=== PATIENT | male | born 1940 | race Caucasian/White ===

== ENCOUNTER 2017-09-20 10:51 | Inpatient (IN) | payer OTHER ==
[~2017-09-20] VITALS: Ht 175.2 cm; Wt 78.5 kg
[2017-09-20] VITALS (14 sets, daily range): BP systolic 103–167; BP diastolic 53–90
--- NOTE | ~2017-09-20 | PR ---
[place], [place] PROGRESS NOTE NAME: JACOB ROSENTHAL UNIT #: [id number] ROOM: 505 DOCTOR: YUDITH HERNÁNDEZ MD BIRTHDATE: [birth year] DOS: 09/21/2017 SUBJECTIVE: The patient was seen at his bedside today 09/21/2017 with family in attendance. The patient and his family remain concerned about the safety of doing a stress test at the [facility] and are refusing to do the stress test here. He has ruled out for an acute myocardial infarction and shows no evidence for ischemia at this time. I think that further evaluation with a stress test is important, but the patient has decided to seek that elsewhere. PHYSICAL EXAMINATION: GENERAL: Today, his pulse is 68 and regular, blood pressure is 134/72. He is afebrile. He weighs 78.5 kg and has a body mass index 25.6. NECK: He has no jugular distention. CHEST: Respirations are unlabored. EXTREMITIES: Showed no edema. IMPRESSION: 1. Episode of chest pain, which was fairly brief but concerning in this setting. The patient showed no objective findings to suggest acute coronary ischemia, however. 2. History of aortic root and aortic valve replacement approximately 9 years ago at the [facility] in [place]. It is most likely that he had a bicuspid aortic valve with an ascending thoracic aortic aneurysm, but those records are not yet available to me. 3. Status post MAZE procedure during valve replacement. 4. History of catheterization and angioplasty 1 year after the patient's bypass surgery. He was told at that time that an internal mammary artery graft to the LAD that was placed at the time of his aortic valve surgery had failed. 5. History of IVP dye allergy. I have no further plans for the patient and his family is making efforts to move him to a different hospital. We will sign off, but remain available if needed. I thank the hospitalist group for asking our advice regarding his care. [place], [place] PROGRESS NOTE NAME: JACOB ROSENTHAL UNIT #: [id number] ROOM: 505 DOCTOR: YUDITH HERNÁNDEZ MD BIRTHDATE: [birth year] YUDITH HERNÁNDEZ MD CM:PNTRANS 5 3 YUDITH HERNÁNDEZ MD 09/21/17922 interface
--- NOTE | ~2017-09-20 | CON ---
[place], [place] REPORT OF CONSULTATION NAME: JACOB ROSENTHAL UNIT #: [id number] ROOM: 505 DOCTOR: YUDITH HERNÁNDEZ MD BIRTHDATE: [birth year] DOS: 09/20/2017 REASON FOR CONSULTATION: Chest pain. HISTORY OF PRESENT ILLNESS: The patient is a 76-year-old man who was previously unknown to [facility] and [facility]. He does have a history of aortic valve and aortic root disease. He states that he had an aortic valve replacement and aortic root replacement along with a maze procedure at the [facility] around 2007. Presumably, this was for a bicuspid aortic valve with ascending thoracic aortic aneurysm. He states that they did do a single vessel bypass at the time of surgery, but the bypass did not stay open and therefore he did undergo catheterization and angioplasty about a year later. He states that he has otherwise done well since then until last evening. He had an episode where he felt cold and clammy and had to change his clothes. This morning while seated at rest he had severe chest pain. His saw him at that time and stated that he was diaphoretic and "white". He took aspirin and nitroglycerin and eventually the pain resolved. The patient believes that the pains lasted several minutes before they resolved. He was then brought by EMS to the Emergency Room where he was evaluated and admitted. His electrocardiogram showed no acute changes, although he does have evidence for a previous anterior infarct and nonspecific T-wave abnormalities. Serial cardiac biomarkers have been negative x 2. PAST MEDICAL HISTORY: Includes: 1. Probable bicuspid aortic valve with aortic stenosis and ascending thoracic aortic aneurysm. 2. Status post aortic valve and aortic root replacement at the [facility] in 2007. 3. Maze procedure done at the time of heart surgery. The patient also had an internal mammary artery graft done which apparently did not stay open very long. 4. Status post catheterization with angioplasty and stent approximately one year after his aortic valve surgery. Details are not available. 5. History of essential hypertension. 6. History of hyperlipidemia. 7. History of prostate cancer. MEDICATIONS PRIOR TO ADMISSION: Aspirin 81 mg daily, lisinopril 5 mg daily, metoprolol 25 mg b.i.d., simvastatin 80 mg at bedtime and nitroglycerin sublingually p.r.n. ALLERGIES: The patient lists an allergy to IVP DYE. REVIEW OF SYSTEMS: The patient denies diplopia, loss of vision, lightheadedness, syncope or focal weakness. He denies fevers, chills or recent weight change. He states that he did have several teeth extracted about a week ago. He did state that he took antibiotics for bacterial endocarditis prophylaxis. He did have an episode of diaphoresis the night before admission as well as at the time of his chest pain. He denies nausea or vomiting. He denies hemoptysis or hematemesis. He denies any change in bowel or bladder habits. He denies blood in his stools or urine. He denies any skin rashes. He [place], [place] REPORT OF CONSULTATION NAME: JACOB ROSENTHAL UNIT #: [id number] ROOM: [facility] DOCTOR: YUDITH HERNÁNDEZ MD BIRTHDATE: [birth year] denies peripheral edema. Remainder of the review of systems is negative except as noted above. FAMILY HISTORY: Positive for coronary artery disease in many family members. His father reportedly had a heart attack during a stress test. SOCIAL HISTORY: The patient is and lives with his . He smoked briefly in his teenage years, but quit at age 27. PHYSICAL EXAMINATION: GENERAL: The patient is well-nourished white male. He is awake, alert and oriented. VITAL SIGNS: Pulse is 69 and regular, blood pressure 146/64, he is afebrile. Weight is unavailable. HEENT: Normocephalic and atraumatic. Extraocular muscles are intact. Sclerae are clear. Pupils equal, round and react to light. The oral mucosa is moist. Tongue is midline. NECK: Supple. He has no jugular distention. Carotids are full. I hear no bruits. He had no neck or supraclavicular masses, no thyromegaly. LUNGS: Respirations are unlabored. His chest is clear to auscultation and percussion. He has a few crackles at the left base, but otherwise, there are no adventitious sounds. He has no presacral edema and no chest wall tenderness. CARDIOVASCULAR: His heart has a regular rhythm. He has grade 2/6 systolic ejection murmur along the left sternal border radiating toward the base. No diastolic murmurs are present. The PMI is not displaced. He has no precordial heave, lift or thrill. ABDOMEN: Soft and normally active without masses, organomegaly or bruits. EXTREMITIES: Showed no clubbing, cyanosis or edema. Peripheral pulses are easily palpated in the feet bilaterally. LABORATORY DATA: I reviewed his electrocardiogram, it showed sinus rhythm with probable previous anterior wall myocardial infarction and nonspecific T-wave flattening. No acute ST elevations were seen. Hemoglobin is 13, hematocrit 38.3. There are 4900 white cells and 135,000 platelets present. Sodium is 137, potassium 4.1, BUN 16, creatinine 1.48. Troponin levels were normal. ProBNP was 109. IMPRESSIONS: 1. Episode of chest pain. The pain was fairly brief but certainly concerning for unstable angina. Thus far, there are no objective findings; however, to suggest coronary ischemia. 2. History of aortic root and aortic valve replacement approximately 9 years ago, probably due to bicuspid aortic valve and ascending thoracic aortic aneurysm. 3. Status post maze procedure during valve replacement. 4. History of catheterization and angioplasty 1 year after the patient's bypass surgery. 5. History of IVP DYE ALLERGY. PLAN: We would continue to monitor his symptoms, EKGs, and cardiac biomarkers. [place], [place] REPORT OF CONSULTATION NAME: JACOB ROSENTHAL UNIT #: [id number] ROOM: [facility] DOCTOR: YUDITH HERNÁNDEZ MD BIRTHDATE: [birth year] If he becomes abnormal, then catheterization would be the next step. However, if he has no elevation in troponins. Then, a stress test would be the next step, but I have informed the patient that is my recommendation. The patient's family is concerned about him having a stress test done at a hospital without catheterization facilities, but I think at this point that is the most reasonable approach to his problems. Further recommendations will be forthcoming after an echocardiogram and stress test have been reviewed. Since he did recently have dental work, I would get blood cultures as well to rule out endocarditis. [facility] and I thank the patient's hospitalist physicians for asking our advice regarding his care. YUDITH HERNÁNDEZ MD CM:CONSTR:REPORT OF CONSULTATION 12 09/20/171952 interface
[~2017-09-20 10:51] MED LIST: ASPIRIN81 M1 PO; LISINOPRIL5 MG PO; LOPRESSOR25 MG PO; SIMVASTATIN20 MG PO
[2017-09-20 11:17] LABS: BASO % 0.8 % (0.0-1.0); EOS # 0.1 10*3/uL (0.0-0.4); EOS % 2.6 % (1.0-4.0); HEMATOCRIT 38.3 % (42.0-52.0); LYMPH # 1.2 10*3/uL (1.3-4.4); LYMPH % 23.5 % (27.0-41.0); MEAN CELL VOLUME 83.4 fl (80.0-94.0); MEAN CORPUSCULAR HGB 28.3 pg (27.0-31.0); MEAN CORPUSCULAR HGB CONC 33.9 g/dl (33.0-37.0); MEAN PLATELET VOLUME 10.7 fl (9.6-12.3); MONO # 0.3 10*3/uL (0.1-1.0); MONO % 6.3 % (3.0-9.0); NEUT # 3.3 10*3/uL (2.3-7.9); NEUT % 66.4 % (47.0-73.0); PLATELET COUNT AUTOMATED 135 10*3/uL (130-400); RED BLOOD COUNT 4.59 10*6/uL (4.50-5.90); RED CELL DISTRI WIDTH 13.2 % (0-14.5); WHITE BLOOD COUNT 4.9 10*3/uL (4.8-10.8)
[2017-09-20 11:26] LABS: ACT PARTIAL THROMBO TIME 22.7 SECONDS (20.8-31.5)
[2017-09-20 11:32] LABS: ALBUMIN 3.9 gm/dl (3.1-4.5); ALKALINE PHOSPHATASE 85 U/L (45-117); BUN 16 mg/dl (7-24); CHLORIDE 102 mmol/L (98-107); CREATININE 1.48 mg/dL (0.70-1.30); LIPASE 223 U/L (73-393); POTASSIUM 4.1 mmol/L (3.5-5.1); SGOT/AST 25 IU/L (3-35); SGPT/ALT 23 U/L (12-78); SODIUM 137 mmol/L (136-145); TOTAL PROTEIN 7.4 gm/dL (6.4-8.2); TROPONIN I < 0.015 ng/ml (<0.045)
[2017-09-20] MEDS ORDERED: ZOCOR80 MG PO (16:32)
[2017-09-20] MEDS ORDERED: NITROSTAT0.4 MG SL (16:33)
[2017-09-21] VITALS: BP 103/56
[2017-09-21 07:03] LABS: BASO % 0.5 % (0.0-1.0); EOS # 0.2 10*3/uL (0.0-0.4); EOS % 3.7 % (1.0-4.0); HEMATOCRIT 41.3 % (42.0-52.0); HEMOGLOBIN 13.8 g/dl (14.0-18.0); LYMPH # 1.8 10*3/uL (1.3-4.4); LYMPH % 32.2 % (27.0-41.0); MEAN CELL VOLUME 83.9 fl (80.0-94.0); MEAN CORPUSCULAR HGB CONC 33.4 g/dl (33.0-37.0); MEAN PLATELET VOLUME 10.4 fl (9.6-12.3); MONO # 0.4 10*3/uL (0.1-1.0); MONO % 7.9 % (3.0-9.0); NEUT % 55.7 % (47.0-73.0); PLATELET COUNT AUTOMATED 140 10*3/uL (130-400); RED BLOOD COUNT 4.92 10*6/uL (4.50-5.90); WHITE BLOOD COUNT 5.5 10*3/uL (4.8-10.8)
[2017-09-21 07:21] LABS: BUN 13 mg/dl (7-24); CHLORIDE 105 mmol/L (98-107); CHOLESTEROL 141 mg/dL (<200); CREATININE 1.31 mg/dL (0.70-1.30); HDL CHOLESTEROL 36 mg/dl (40-60); LDL CHOLESTEROL 66 mg/dL (9-159); PHOSPHOROUS 3.2 mg/dL (2.5-4.9); POTASSIUM 4.3 mmol/L (3.5-5.1); SODIUM 141 mmol/L (136-145); TRIGLYCERIDES 197 mg/dl (<150); VLDL CHOLESTEROL 39 mg/dL (6-40)
[2017-09-21 08:00] VITALS: BP 134/72
[2017-09-21 08:27] LABS: VITAMIN D, 25-HYDROXY 25.3 ng/mL (30-100)
[2017-09-21] MEDS ORDERED: NITROSTAT0.3 M1 SL ×2 (10:19→10:25)
== END 2017-09-21 10:49 | disposition home or self-care (01) | DRG 313 ==
LOC: ED 10:51 → EDHOLD 14:27 → 5E 14:27
PROVIDERS: Emergency Medicine; Family Medicine
DX: R07.9 Chest pain, unspecified (principal); I25.10 Atherosclerotic heart disease of native coronary artery without angina pectoris; N17.0 Acute kidney failure with tubular necrosis; D64.9 Anemia, unspecified; I10 Essential (primary) hypertension; E78.5 Hyperlipidemia, unspecified; Z53.29 Procedure and treatment not carried out because of patient's decision for other reasons; Z78.9 Other specified health status; E78.00 Pure hypercholesterolemia, unspecified; R73.9 Hyperglycemia, unspecified; Z71.6 Tobacco abuse counseling; Z95.2 Presence of prosthetic heart valve; Z95.5 Presence of coronary angioplasty implant and graft; Z91.041 Radiographic dye allergy status; Z79.899 Other long term (current) drug therapy; Z79.82 Long term (current) use of aspirin; Z98.42 Cataract extraction status, left eye; Z98.41 Cataract extraction status, right eye; Z90.49 Acquired absence of other specified parts of digestive tract; Z95.1 Presence of aortocoronary bypass graft; Z87.891 Personal history of nicotine dependence; Z85.46 Personal history of malignant neoplasm of prostate; Z82.49 Family history of ischemic heart disease and other diseases of the circulatory system

== ENCOUNTER → 2017-10-04 | Outpatient (CLI) | payer OTHER ==
[~2017-10-04] MED LIST changes: +NITROSTAT0.3 M1 SL; +NITROSTAT0.4 MG SL; +ZOCOR80 MG PO
--- NOTE | ~2017-10-04 | ST ---
[place], [place] EXERCISE STRESS TEST REPORT NAME: JACOB ROSENTHAL [facility] #: [id number] UNIT #: [id number] ROOM: DOCTOR: HU ANDERSON MD BIRTHDATE: [birth year] DOS: 10/04/2017 PHARMACOLOGICAL NUCLEAR STRESS TEST AGE: He is 76-year-old. HEIGHT: 67 inches. WEIGHT: 174. REASON FOR STUDY: Chest pain and baseline EKG. Heart rate of 66, blood pressure of 120/72. Baseline oxygen saturation of 97% at room air. 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 No arrhythmias noted. Lexiscan was infused over 10 seconds and nuclear injection was made at 40 seconds and the patient was observed for 3 minutes in recovery phase. The patient experienced shortness of breath and some chest and epigastric discomfort, which lasted for a few minutes. From EKG point of view, no abnormal or acute ST-T wave changes noted compared to baseline. Heart rate and blood pressure response was physiological. FINAL IMPRESSION: Pending nuclear images. HU ANDERSON MD CM:STRESS:EXERCISE STRESS TEST REPORT [id number] HU ANDERSON MD
--- NOTE | ~2017-10-04 | ST ---
[place], [place] EXERCISE STRESS TEST REPORT NAME: JACOB ROSENTHAL Orin [facility] #: [id number] UNIT #: [id number] ROOM: DOCTOR: HU ANDERSON MD BIRTHDATE: [birth year] CM:STRESS:EXERCISE STRESS TEST REPORT [id number] HU ANDERSON MD
== END | disposition home or self-care (01) ==
LOC: CARD 01:21
DX: R07.9 Chest pain, unspecified (principal); R53.81 Other malaise

== ENCOUNTER 2019-07-05 23:22 | Inpatient (IN) | payer OTHER ==
[~2019-07-05] VITALS: Ht 175.3 cm; Wt 79.6 kg
[~2019-07-05 23:22] MED LIST changes: +ZOCOR20 MG PO; -ZOCOR80 MG PO
--- NOTE | 2019-07-05 23:25 | NUR ---
PT TO TREATMENT ROOM, PLACED IN GOWN, ASSESSMENT COMPLETE, PLACED ON ANGLE ROLL OPERATOR, NIBP AND CONTINUOUS PULSE OX, EKG COMPLETE AND GIVEN TO MD, PT WAITING TO BE SEEN BY MD, CALL MANLEY IN REACH, PT IN NO ACUTE DISTRESS
[2019-07-05 23:29] VITALS: BP 127/60
--- NOTE | 2019-07-05 23:45 | NUR ---
DR. FLORIAN AT BEDSIDE
[2019-07-05 23:46] LABS: BASO # 0.1 10*3/uL (0.0-0.1); EOS # 0.2 10*3/uL (0.0-0.4); EOS % 2.2 % (1.0-4.0); HEMATOCRIT 39.9 % (42.0-52.0); HEMOGLOBIN 12.9 g/dl (14.0-18.0); LYMPH % 27.7 % (27.0-41.0); MEAN CELL VOLUME 85.6 fl (80.0-94.0); MEAN CORPUSCULAR HGB 27.7 pg (27.0-31.0); MEAN CORPUSCULAR HGB CONC 32.3 g/dl (33.0-37.0); MEAN PLATELET VOLUME 10.1 fl (9.6-12.3); MONO # 0.6 10*3/uL (0.1-1.0); NEUT # 4.5 10*3/uL (2.3-7.9); NEUT % 60.7 % (47.0-73.0); PLATELET COUNT AUTOMATED 179 10*3/uL (130-400); RED BLOOD COUNT 4.66 10*6/uL (4.50-5.90); RED CELL DISTRI WIDTH 12.5 % (0-14.5); WHITE BLOOD COUNT 7.3 10*3/uL (4.8-10.8)
--- NOTE | 2019-07-05 23:50 | NUR ---
PORTABLE CXR COMPLETE ORDERED
[2019-07-05 23:52] LABS: INTERNATIONAL NORM RATIO 0.9 (2.0-3.5)
[2019-07-05 23:55] LABS: ALBUMIN 3.9 gm/dl (3.1-4.5); ALKALINE PHOSPHATASE 85 U/L (45-117); BUN 25 mg/dl (7-24); CHLORIDE 109 mmol/L (98-107); POTASSIUM 4.1 mmol/L (3.5-5.1); SGOT/AST 20 IU/L (3-35); SGPT/ALT 22 U/L (12-78); SODIUM 141 mmol/L (136-145); TOTAL PROTEIN 7.4 gm/dL (6.4-8.2)
[2019-07-05 23:59] LABS: TROPONIN I < 0.015 ng/ml (<0.045)
[2019-07-06] VITALS (10 sets, daily range): BP systolic 113–162; BP diastolic 58–75
--- NOTE | 2019-07-06 00:22 | NUR ---
WILL CONTINUE TO TITRATE NTG GTT ORDERED, SEE EMAR, INFUSING VIA IV PUMP WITH NO REDNESS OR SWELLING
--- NOTE | 2019-07-06 00:22 | NUR ---
RT SIDE EKG COMPLETE ORDERED BY RESP THERAPIST
--- NOTE | 2019-07-06 00:41 | NUR ---
DR FLORIAN AT BEDSIDE TO RE-EVALUATE PT, PT MEDICATED FOR ABD PAIN ORDERED SEE EMAR, PAIN RATED 7/10, WILL CNTINUE TO MONITOR PT, CALL MANLEY IN REACH
[2019-07-06] MEDS ORDERED: CLARITIN10 MG PO (00:59)
[2019-07-06] MEDS ORDERED: CO Q-1010 M2 PO (00:59)
[2019-07-06] MEDS ORDERED: MAALOX ADVANCE355 M1 PO (01:00)
[2019-07-06] MEDS ORDERED: B121000 MCG/1 IM (01:01)
--- NOTE | 2019-07-06 01:38 | NUR ---
PT RESTING QUIETLY, PAIN FREE, SR ON MONITOR, AWAITING ROOM ASSIGNMENT FOR ADMIT
--- NOTE | 2019-07-06 02:03 | NUR ---
CT COMPLETE ORDERED BY
--- NOTE | 2019-07-06 02:06 | NUR ---
NTG GTT TITRATED DOWN AND D/C ORDERED BY , PT TOLERATED WELL
--- NOTE | 2019-07-06 02:34 | NUR ---
Time: A 78 year old MALE admitted to 5E under services of JESSICA YOU DO. Pt. arrived via stretcher from ER. Chief complaint: CHEST PAIN. RECEIVED REPORT FROM JANAY MILLAN. PT ORIENTED TO FLOOR. NSR ON MONITOR. BELONGINGS WITH PATIENT. CARO CHRISTIANSON
--- NOTE | 2019-07-06 02:34 | NUR ---
PT ADMITTED TO 5TH FLOOR WITH RN IN NO ACUTE DISTRESS, RESP EASY ON 2 L/NC, NSR ON MONITOR, SALINE LOCKS PATENT WITH NO REDNESS OR SWELLING, BELONGINGS WITH PT
--- NOTE | 2019-07-06 03:07 | NUR ---
MED REC REVIEWED WITH IN ER.
--- NOTE | 2019-07-06 03:48 | NUR ---
PT CO EPIGASTRIC PAIN RATED 8/10. MEDICATED WITH PRN MORPHINE. WILL CHECK EFFECTIVENESS. CALL LIGHT WITHIN REACH.
--- NOTE | 2019-07-06 04:00 | NUR ---
PT SLEEPING. REPSIRATIONS EASY, NONLABORED. PAIN MED SEEMS TO BE EFFECTIVE. CALL LIGHT WITHIN REACH.
[2019-07-06 05:52] LABS: ALBUMIN 4.1 gm/dl (3.1-4.5); CREATININE 1.83 mg/dL (0.70-1.30); PHOSPHOROUS 2.7 mg/dL (2.5-4.9); POTASSIUM 4.9 mmol/L (3.5-5.1); TOTAL PROTEIN 7.7 gm/dL (6.4-8.2)
--- NOTE | 2019-07-06 06:36 | NUR ---
ANSWERING SERVICE NOTIFIED OF NEW CONSULT.
[2019-07-06 06:38] LABS: BASO % 0.3 % (0.0-1.0); EOS % 0.1 % (1.0-4.0); HEMOGLOBIN 12.9 g/dl (14.0-18.0); LYMPH # 0.5 10*3/uL (1.3-4.4); LYMPH % 4.9 % (27.0-41.0); MEAN CELL VOLUME 86.6 fl (80.0-94.0); MEAN CORPUSCULAR HGB 27.9 pg (27.0-31.0); MEAN CORPUSCULAR HGB CONC 32.3 g/dl (33.0-37.0); MEAN PLATELET VOLUME 10.4 fl (9.6-12.3); MONO # 0.8 10*3/uL (0.1-1.0); MONO % 6.9 % (3.0-9.0); NEUT # 9.5 10*3/uL (2.3-7.9); NEUT % 87.4 % (47.0-73.0); PLATELET COUNT AUTOMATED 168 10*3/uL (130-400); RED BLOOD COUNT 4.62 10*6/uL (4.50-5.90); RED CELL DISTRI WIDTH 12.6 % (0-14.5); WHITE BLOOD COUNT 10.9 10*3/uL (4.8-10.8)
--- NOTE | 2019-07-06 09:07 | NUR ---
PT WILL NOT HAVE ABD ULTRASOUND TODAY. I SPOKE TO DR EMERSON AND RECIVED ORDER FOR CARDIAC DIET. I ALSO INFORMED HER THAT PT HAS TEMP ON 100.2 ORAL. WILL ADMINISTER PO TYLENOL AND MONITOR
--- NOTE | 2019-07-06 09:12 | NUR ---
SPOKE TO DR KELLER REGARDING ATTEMPT TO CHECK PT RECTALLY FOR HARD STOOL. ORDERS RECEIVED.
--- NOTE | 2019-07-06 09:35 | NUR ---
ADMINISTERED PO NORCO FOR PAIN IN RIGHT SIDE RATED 8/10. WILL MONITOR FOR EFFECTIVENESS
--- NOTE | 2019-07-06 10:30 | NUR ---
Patient resting quietly with no c/o discomfort. Respirations easy and regular. Vital signs stable. No overt distress. ERIBERTO ALANIZ
--- NOTE | 2019-07-06 14:37 | NUR ---
SPOKE TO DR HOWELL REGARDING ORDER FOR ASPIRIN SUPPOSITORY. HE STATED ORDER SHOULD BE PO ASPIRIN DAILY
--- NOTE | 2019-07-06 22:10 | NUR ---
PT CO RIGHT SIDE PAIN RATED 8/10. MEDICATED WITH PRN NORCO ORDERED. WILL CHECK EFFECTIVENESS. CALL LIGHT WITHIN REACH.
--- NOTE | 2019-07-06 23:25 | NUR ---
PT RESTING IN BED WITH NO C/O DISCOMFORT AT THIS TIME. PATIENT STATES PAIN MED WAS EFFECTIVE. WILL CONTINUE TO MONITOR. CALL LIGHT WITHIN REACH.
[2019-07-07] VITALS: BP 108/53
--- NOTE | 2019-07-07 00:08 | NUR ---
24 HR chart check completed.
--- NOTE | 2019-07-07 05:00 | NUR ---
CRIMINAL JUSTICE PROGRAM DIRECTOR CALLED AND INFORMED ME OF ST ELEVATION. WENT INTO PTS ROOM AND PT SEEMED VERY RESTLESS. PT HAD HIS OXYGEN OFF BECAUSE HE FELT HE DIDN'T NEED IT. PUT OXYGEN BACK ON PULSE OX UP TO 95. INFORMED . SEE NEW ORDERS.
[2019-07-07 05:58] LABS: CREATININE 1.96 mg/dL (0.70-1.30); POTASSIUM 4.3 mmol/L (3.5-5.1)
--- NOTE | 2019-07-07 06:29 | NUR ---
IN TO SEE PT. PATIENT RESTING IN BED WITH OXYGEN ON PULSE OX 95. PT CO RUQ PAIN, BUT STATES HE DOES NOT WANT ANY PAIN MEDS AT THIS TIME. WILL MONITOR. CALL LIGHT WITHIN REACH.
[2019-07-07 06:34] LABS: HEMOGLOBIN 12.7 g/dl (14.0-18.0); MEAN CELL VOLUME 87.4 fl (80.0-94.0); MEAN CORPUSCULAR HGB 28.5 pg (27.0-31.0); MEAN CORPUSCULAR HGB CONC 32.6 g/dl (33.0-37.0); MEAN PLATELET VOLUME 10.3 fl (9.6-12.3); PLATELET COUNT AUTOMATED 129 10*3/uL (130-400); RED BLOOD COUNT 4.46 10*6/uL (4.50-5.90); WHITE BLOOD COUNT 12.5 10*3/uL (4.8-10.8)
[2019-07-07 07:04] LABS: BASOPHILS 1 % (0-1); OVALOCYTES FEW; TOTAL CELLS COUNTED 100 #CELLS
[2019-07-07 07:05] LABS: PLATELET SUFFICIENCY LOW (NORMAL)
--- NOTE | 2019-07-07 07:53 | NUR ---
PT C/O PAIN TO UPPER ABD ON RIGHT SIDE AND RIGHT SIDED CHEST PAIN OF 6/10 . MORPHINE IV GIVEN AT THIS TIME. WILL CONT TO MONITOR. CALL LIGHT IN REACH.
[2019-07-07 08:00] VITALS: BP 126/50
--- NOTE | 2019-07-07 08:53 | NUR ---
PT RESTING QUIETLY AT THIS TIME. WILL CONT TO MONITOR. CALL LIGHT IN REACH.
--- NOTE | 2019-07-07 11:48 | NUR ---
PT GRIMACING AND BRACING ABD. NORCO GIVEN FOR PAIN AT THIS TIME PER HIS REQUEST. WILL CONT TO MONITOR. CALL LIGHT IN REACH.
[2019-07-07 12:00] VITALS: BP 123/47
--- NOTE | 2019-07-07 12:48 | NUR ---
RESTING QUIETLY AT THIS TIME WITH EYES CLOSED. WILL CONT TO MONITOR. CALL LIGHT IN REACH.
--- NOTE | 2019-07-07 13:20 | NUR ---
DR HOWELL IN TO SEE PATIENT AND GAVE ME A NEW VERBAL ORDER FOR LASIX 40MG IV X1 NOW.
[2019-07-07 16:00] VITALS: BP 106/44
[2019-07-07 20:00] VITALS: BP 104/54
[2019-07-08] VITALS (14 sets, daily range): BP systolic 91–155; BP diastolic 52–74
--- NOTE | 2019-07-08 02:12 | NUR ---
24 HR chart check completed.
--- NOTE | 2019-07-08 03:53 | NUR ---
PT STATES THAT HE IS HAVING PAIN IN HIS CHEST AND ABDOMEN RATING IT A 6/10 AND IS REQUESTING PAIN MEDICATIONS. MORPHINE IV IS GIVEN AT THIS TIME. WILL CONTINUE TO MONITOR THE PATIENT. CALL LIGHT WITHIN REACH.
--- NOTE | 2019-07-08 04:23 | NUR ---
PT RE-EVALUATED AT THIS TIME. STATES THAT THE IV MORPHINE HAS HELPED THE PAIN A LITTLE BIT. REQUESTED THE AIR BE TURNED COOLER DUE TO BEING HOT. RESTING AT THIS TIME, AROUSES EASILY. CALL LIGHT WITHIN REACH. WILL CONTINUE TO MONITOR.
[2019-07-08 07:03] LABS: BASO % 0.2 % (0.0-1.0); EOS % 0.1 % (1.0-4.0); HEMATOCRIT 37.1 % (42.0-52.0); HEMOGLOBIN 12.1 g/dl (14.0-18.0); LYMPH # 0.9 10*3/uL (1.3-4.4); LYMPH % 7.5 % (27.0-41.0); MEAN CELL VOLUME 88.1 fl (80.0-94.0); MEAN CORPUSCULAR HGB 28.7 pg (27.0-31.0); MEAN CORPUSCULAR HGB CONC 32.6 g/dl (33.0-37.0); MEAN PLATELET VOLUME 10.9 fl (9.6-12.3); MONO # 0.6 10*3/uL (0.1-1.0); MONO % 5.2 % (3.0-9.0); NEUT # 9.6 10*3/uL (2.3-7.9); NEUT % 84.9 % (47.0-73.0); PLATELET COUNT AUTOMATED 116 10*3/uL (130-400); RED BLOOD COUNT 4.21 10*6/uL (4.50-5.90); WHITE BLOOD COUNT 11.3 10*3/uL (4.8-10.8)
[2019-07-08 07:10] LABS: CREATININE 2.37 mg/dL (0.70-1.30); POTASSIUM 3.9 mmol/L (3.5-5.1)
--- NOTE | 2019-07-08 08:29 | NUR ---
Nursing screen received and chart reviewed. Per chart review, patient is independent with ADLs and mobility. If patient has a decline in ADLs and functional mobility/transfer, please send OT orders. Thank you. Divine Ivory, OTR/L
--- NOTE | 2019-07-08 09:00 | NUR ---
Bottle Washer in to talk to patient. Patient states lives at home with . There are few steps in the home. Physician: althea [facility] Home health services: none Patient's level of ADLs: INDEPENDENT Patient has working utilities: all working DME: none Follow-up physician's appointment after d/c: will be made by hospitalist nurse director upon discharge Does patient want to access PORTAL?: no Discharge plan discussed with patient's , she states patient lives at home with her, is independent in adls and ambulation, drives, she states he will return home when medically stable and denies any home needs. HELLEN HEWITT
--- NOTE | 2019-07-08 09:06 | NUR ---
Not available for echo.
--- NOTE | 2019-07-08 11:03 | NUR ---
PHYSICIAN WAS NOTIFIED OF DR. HIRSCH CONSULT. RESPONSE OF NOTIFICATION WAS OK KEEP HIM NPO UNTIL I SEE HIM. ILENE MATHUR
--- NOTE | 2019-07-08 11:13 | NUR ---
PT COMPLAINS OF ABD PAIN 4/10 MORPHINE GIVEN
--- NOTE | 2019-07-08 11:15 | NUR ---
DR HIRSCH CALLED BACK AND GAVE NEW ORDERS FOR A LAPARSCOPIC CHOLECYSTECTOMY TODAY AT 12:30. DR DEXTER MADE AWARE AND PATIENT OK WITH.
--- NOTE | 2019-07-08 11:47 | NUR ---
SPOKE TO DR HOWELL AND HE STATED PT WAS CLEAR FOR SURGERY AND HE IS SIGNING OFF.
--- NOTE | 2019-07-08 11:51 | NUR ---
LEFT FLOOR FOR SURGERY
--- NOTE | 2019-07-08 11:57 | NUR ---
still not available for echo, went to surgery.
--- NOTE | 2019-07-08 18:00 | NUR ---
DR HUNT NOTIFIED OF PT TEMP OF 100.2
--- NOTE | 2019-07-08 18:01 | NUR ---
PT SHIVERING TEMPERATURE 100.2 TYLENOL GIVEN WILL RECHECK IN 1 HR
--- NOTE | 2019-07-08 18:21 | NUR ---
PT SHIVERING, STATES HE'S FEELING FINE, HR 120'S PER CM. DR HUNT NOTIFIED AND ASKED THAT I UPDATE DR HIRSCH.
--- NOTE | 2019-07-08 18:26 | NUR ---
DR HIRSCH UPDATED ON PT CONDITION PER DR HUNT'S REQUEST. NO NEW ORDERS RECEIVED.
--- NOTE | 2019-07-08 18:48 | NUR ---
LOPRESSOR GIVEN EARLY DUE TO ELEVATED HR AND PT DID NOT HAVE AM DOSE DUE TO SURGERY DIRECTED BY DR HIRSCH.
--- NOTE | 2019-07-08 19:03 | NUR ---
PT DENIES PAIN AT THIS TIME.
--- NOTE | 2019-07-08 20:00 | NUR ---
02 SATS 90% AT 2 LITERS; INCREASED 02 AT THIS TIME TO 3 LITERS. PT. ENCOURAGED TO TAKE DEEP BREATHS.
--- NOTE | 2019-07-08 23:18 | NUR ---
NOTIFIED OF PT'S BLOOD PRESSURE OF 68/50; NEW ORDER RECEIVED FOR 250 CC BOLUS.
[2019-07-09] VITALS (65 sets, daily range): BP systolic 70–128; BP diastolic 34–66
--- NOTE | 2019-07-09 00:24 | NUR ---
NOTIFIED DR. BOURNE OF PT'S LOW BLOOD PRESSURE; SEE VITAL SIGN FLOW CHART. ANOTHER ORDER RECEIVED FOR A 500 CC BOLUS.
--- NOTE | 2019-07-09 02:11 | NUR ---
PT'S BLOOD PRESSURE REMAINS LOW AFTER A 200 CC BOLUS & A [address] BOURNE & DR. BOURNE STATED THAT HE WOULD SEE WHAT ELSE COULD BE DONE FOR HIM.
--- NOTE | 2019-07-09 02:25 | NUR ---
DR. BURK & DR. BOURNE HERE TO SEE PT. TRANSFERRING PT. TO ICU.
--- NOTE | 2019-07-09 02:45 | NUR ---
PT. TAKEN DOWN TO ICU VIA BED ACCOMPANIED BY PA & RN. REPORT GIVEN TO RN.
--- NOTE | 2019-07-09 02:50 | NUR ---
PATIENT TRANSEFERED TO ICCU FROM 5E REPRORT RECIEVED FROM ADOLFO GUSTAFSON.
[2019-07-09 03:48] LABS: HEMATOCRIT 33.5 % (42.0-52.0); MEAN CELL VOLUME 87.2 fl (80.0-94.0); MEAN CORPUSCULAR HGB 28.6 pg (27.0-31.0); MEAN CORPUSCULAR HGB CONC 32.8 g/dl (33.0-37.0); MEAN PLATELET VOLUME 10.8 fl (9.6-12.3); PLATELET COUNT AUTOMATED 108 10*3/uL (130-400); RED BLOOD COUNT 3.84 10*6/uL (4.50-5.90); RED CELL DISTRI WIDTH 13.2 % (0-14.5); WHITE BLOOD COUNT 10.6 10*3/uL (4.8-10.8)
[2019-07-09 04:08] LABS: ALBUMIN 2.5 gm/dl (3.1-4.5); CREATININE 3.45 mg/dL (0.70-1.30); POTASSIUM 3.7 mmol/L (3.5-5.1)
[2019-07-09 04:19] LABS: PLATELET SUFFICIENCY LOW (NORMAL); TOTAL CELLS COUNTED 100 #CELLS
--- NOTE | 2019-07-09 04:28 | NUR ---
CALLED DOCTOR HIRSCH WITH UPDATE OF PATIENT BEING MOVED TO THE ICCU HE SAID OK NO NEW ORDRES AT THIS TIME.
--- NOTE | 2019-07-09 07:01 | NUR ---
PT'S , MIKE ROSENTHAL, NOTIFIED OF BEING TRANSFERRED TO ICU.
--- NOTE | 2019-07-09 07:25 | NUR ---
PATIENT STRAIGHT CATHED FOR 300CC CLEAR AMBERLY URINE PER ONE TIME ORDER.
--- NOTE | 2019-07-09 11:20 | NUR ---
PATIENT C/O ABDOMINAL PAIN AT SURGICAL SITE. MEDICATED WITH NORCO PER PRN ORDER. WILL CONTINUE TO MONITOR.
--- NOTE | 2019-07-09 12:00 | NUR ---
NOTIFIED OFFICE OF NEW CONSULT ORDER.
--- NOTE | 2019-07-09 15:00 | NUR ---
PATIENT HAS NOT VOIDED SINCE BEING STRAIGHT CATHED THIS AM. BLADDER SCAN 85CC. NOTIFIED. WANTS TO BE NOTIFIED OF THIS.
--- NOTE | 2019-07-09 15:45 | NUR ---
HERE. UPDATED ON PATIENT. INFORMED OF BLADDER SCAN RESULTS AND OF PATIENT NOT VOIDING. NEW ORDER RECEIVED TO ST.CATH FOR BLADDER SCAN >300.
[2019-07-09] MEDS ORDERED: TRIAMTERENE-HC1 EACH PO (16:38)
--- NOTE | 2019-07-09 16:42 | NUR ---
NOTIFIED THAT MEDICATION RECONNCILIATION IS UPDATED FROM PHARMACY AND SPOUSE AT THIS TIME.
[2019-07-09 17:22] LABS: BILIRUBIN 2+ (NEGATIVE); BLOOD 3+ (NEGATIVE); CLARITY CLOUDY (CLEAR); COLOR YELLOW (YELLOW); GLUCOSE NEGATIVE (NEGATIVE); KETONE NEGATIVE (NEGATIVE); LEUKO ESTERASE NEGATIVE (NEGATIVE); NITRITE NEGATIVE (NEGATIVE); PH 5.5 (5.0-9.0); SPECIFIC GRAVITY 1.015 (1.005-1.030); UROBILINOGEN 0.2 E.U./dl (0.2-1.0)
[2019-07-09 17:37] LABS: BACTERIA 4+; RBC TNTC rbc/hpf (0-2)
--- NOTE | 2019-07-09 18:00 | NUR ---
LEVOPHED GTT OFF AT THIS TIME.
--- NOTE | 2019-07-09 21:02 | NUR ---
PATIENT HAD 10 BEAT RUN VTACH DOCTOR WM MADE AWARE MAG RUN ORDERED. PATIENT IS ASYMPTOMATIC DENIES CP VITALS ARE STABLE.
[2019-07-10] VITALS (7 sets, daily range): BP systolic 92–110; BP diastolic 50–65
--- NOTE | 2019-07-10 04:10 | NUR ---
BLADDER SCANNED PATIENT AND IS ONLY SHOWING 89 ML IN THE BLADDER THAT IS THE HIGHEST AMOUNT. PATIENT DENIES THE NEED TO URINATE AT THIS TIME. PATIENT HAS BEEN SLEEPING IN THE CHAIR THE PAST FEW HOURS STATES THAT HE IS MORE COMFORTABLE IN IT.
[2019-07-10 05:31] LABS: PHOSPHOROUS 2.5 mg/dL (2.5-4.9)
--- NOTE | 2019-07-10 06:23 | NUR ---
PATIENT TAKEN DOWN FOR CHEST XRAY. PATIENT CAME BACK FROM CHEST XRAY VITALS STABLE CURRENTLY SEE VITALS FOR DETAILS CURRENTLY IV FLUIDS INFUSING.
[2019-07-10 06:41] LABS: BASO % 0.3 % (0.0-1.0); EOS % 0.5 % (1.0-4.0); HEMATOCRIT 28.3 % (42.0-52.0); LYMPH # 0.6 10*3/uL (1.3-4.4); LYMPH % 9.6 % (27.0-41.0); MEAN CELL VOLUME 88.4 fl (80.0-94.0); MEAN CORPUSCULAR HGB 28.1 pg (27.0-31.0); MEAN CORPUSCULAR HGB CONC 31.8 g/dl (33.0-37.0); MEAN PLATELET VOLUME 10.8 fl (9.6-12.3); MONO # 0.5 10*3/uL (0.1-1.0); MONO % 8.4 % (3.0-9.0); NEUT # 4.8 10*3/uL (2.3-7.9); NEUT % 80.5 % (47.0-73.0); PLATELET COUNT AUTOMATED 101 10*3/uL (130-400); RED CELL DISTRI WIDTH 13.9 % (0-14.5)
[2019-07-10 06:46] LABS: ALBUMIN 2.3 gm/dl (3.1-4.5); CREATININE 4.95 mg/dL (0.70-1.30); PHOSPHOROUS 2.3 mg/dL (2.5-4.9); POTASSIUM 3.7 mmol/L (3.5-5.1)
[2019-07-10 07:30] LABS: ALBUMIN 2.3 gm/dl (3.1-4.5); BILIRUBIN, DIRECT 2.3 mg/dL (0.0-0.2); TOTAL PROTEIN 5.8 gm/dL (6.4-8.2)
--- NOTE | 2019-07-10 07:52 | NUR ---
PHYSICAL THERAPY Screen received pt transfered from 505 to ICU pt could benefit from PT pending medical status and progress, please order PT as approp if functional status declines, thank you. Marci Heaton
--- NOTE | 2019-07-10 18:00 | NUR ---
CALLED IN AND UPDATED ON PATIENT CONDITION AND LAB WORK. PATIENT BLADDER SCANNED FOR 148CC. INFORMED OF THIS. NO NEW ORDERS RECEIVED.
--- NOTE | 2019-07-10 20:08 | NUR ---
PT. RESTING IN BED. HEP LOCK IN LA AND RIJ MLC INTACT, SITES ASYMPT. LUNGS DIMINISHED WITH AN EXP. WHEEZES BILAT, PULSE OX 96% ON 2L NC. ABDOMEN SOFT ,NONDISTENDED AND NORMO. NO PERIPHERAL EDEMA NOTED. SMALL INCISION SITES ON ABD GLUED, SLIGHTLY REDDENED WITH NO DRAINAGE NOTED. BRET MUNIZ RN
--- NOTE | 2019-07-10 21:31 | NUR ---
PT. GIVEN RESTORIL AND NORCO AT 2121 FOR COMPLAINTS OF INABILITY TO SLEEP AND POST-OP PAIN. BRET MUNIZ RN
[2019-07-10 21:33] LABS: BILIRUBIN NEGATIVE (NEGATIVE); BLOOD 1+ (NEGATIVE); CLARITY SL CLOUDY (CLEAR); COLOR YELLOW (YELLOW); GLUCOSE NEGATIVE (NEGATIVE); KETONE NEGATIVE (NEGATIVE); LEUKO ESTERASE NEGATIVE (NEGATIVE); NITRITE NEGATIVE (NEGATIVE); PH 5.5 (5.0-9.0); SPECIFIC GRAVITY 1.015 (1.005-1.030); UROBILINOGEN 0.2 E.U./dl (0.2-1.0)
[2019-07-10 22:02] LABS: BACTERIA 1+
--- NOTE | 2019-07-10 22:11 | NUR ---
PT. SLEEPING, NORCO AND RESTORIL EFFECTIVE.
[2019-07-11] VITALS: BP 109/53
[2019-07-11 04:00] VITALS: BP 104/56
[2019-07-11 05:34] LABS: BASO % 0.4 % (0.0-1.0); EOS # 0.1 10*3/uL (0.0-0.4); EOS % 1.4 % (1.0-4.0); HEMATOCRIT 29.4 % (42.0-52.0); HEMOGLOBIN 9.2 g/dl (14.0-18.0); LYMPH # 0.6 10*3/uL (1.3-4.4); LYMPH % 10.8 % (27.0-41.0); MEAN CELL VOLUME 89.4 fl (80.0-94.0); MEAN CORPUSCULAR HGB CONC 31.3 g/dl (33.0-37.0); MEAN PLATELET VOLUME 10.7 fl (9.6-12.3); MONO # 0.5 10*3/uL (0.1-1.0); MONO % 8.6 % (3.0-9.0); NEUT # 4.3 10*3/uL (2.3-7.9); PLATELET COUNT AUTOMATED 110 10*3/uL (130-400); RED BLOOD COUNT 3.29 10*6/uL (4.50-5.90); RED CELL DISTRI WIDTH 14.5 % (0-14.5); WHITE BLOOD COUNT 5.6 10*3/uL (4.8-10.8)
[2019-07-11 05:52] LABS: ALBUMIN 2.1 gm/dl (3.1-4.5); CREATININE 5.87 mg/dL (0.70-1.30); PHOSPHOROUS 3.1 mg/dL (2.5-4.9); POTASSIUM 4.2 mmol/L (3.5-5.1); TOTAL PROTEIN 5.7 gm/dL (6.4-8.2)
[2019-07-11 08:00] VITALS: BP 112/60; BP 137/90
--- NOTE | 2019-07-11 08:36 | NUR ---
I SPOKE WITH DR DRUMMOND AND UPDATED HIM ON PT'S LAB WORK AND URINE OUTPT. NEW ORDER TO DECREASE IVF'S TO 50CC/HR.
--- NOTE | 2019-07-11 08:51 | NUR ---
DULCOLAX TAB GIVEN FOR CONSTIPATION.
--- NOTE | 2019-07-11 08:51 | NUR ---
DR HIRSCH IN TO SEE PT.
[2019-07-11 12:00] VITALS: BP 111/59
--- NOTE | 2019-07-11 12:22 | NUR ---
PATIENT TRANSFEED FROM ICU TO TELELMETRY UNIT, HE DENIES ANY COMPLANTS OR CONCERNS AT THIS TIME. MULTIPLE FAMILY MEMBERS AT BEDSIDE, JOSE BERNSTEIN UPDATED. REPORT RECEIVED FROM ICU NURSE.
--- NOTE | 2019-07-11 12:22 | NUR ---
Pt transfered to [facility] at this time. Pt was able to ambulate with minimal assist needed to his new room.
[2019-07-11 16:00] VITALS: BP 120/59
--- NOTE | 2019-07-11 16:57 | NUR ---
PATIENTS LAST BM 6 DAYS AGO CALL PLACED TO DR. TONY, TO RECEIEVED FOR A DOUBLE DOSE OF MIRALAX.
--- NOTE | 2019-07-11 19:20 | NUR ---
Patient resting quietly with no c/o discomfort. Respirations easy and regular. Vital signs stable. No overt distress. CALL LIGHT WITHIN REACH LAYNE JAMES
[2019-07-11 20:00] VITALS: BP 136/69
--- NOTE | 2019-07-11 20:53 | NUR ---
PATIENT HAD MEDIUM SIZED SEMI-SOFT BOWEL MOVEMENT.
--- NOTE | 2019-07-11 22:00 | NUR ---
PATIENT BLADDER SCANNED AT THIS TIME. AMOUNT 201 CC URINE SHOW, NOT CATH'D PER ORDERS. WILL CONTINUE TO MONITOR
[2019-07-12] VITALS: BP 119/87
[2019-07-12 07:00] LABS: BASO % 0.5 % (0.0-1.0); EOS # 0.1 10*3/uL (0.0-0.4); EOS % 1.6 % (1.0-4.0); HEMATOCRIT 29.1 % (42.0-52.0); HEMOGLOBIN 9.4 g/dl (14.0-18.0); LYMPH # 0.7 10*3/uL (1.3-4.4); LYMPH % 10.4 % (27.0-41.0); MEAN CELL VOLUME 86.4 fl (80.0-94.0); MEAN CORPUSCULAR HGB 27.9 pg (27.0-31.0); MEAN CORPUSCULAR HGB CONC 32.3 g/dl (33.0-37.0); MEAN PLATELET VOLUME 10.6 fl (9.6-12.3); MONO # 0.6 10*3/uL (0.1-1.0); MONO % 9.7 % (3.0-9.0); NEUT # 4.8 10*3/uL (2.3-7.9); NEUT % 77.3 % (47.0-73.0); PLATELET COUNT AUTOMATED 140 10*3/uL (130-400); RED BLOOD COUNT 3.37 10*6/uL (4.50-5.90); RED CELL DISTRI WIDTH 14.6 % (0-14.5); WHITE BLOOD COUNT 6.3 10*3/uL (4.8-10.8)
[2019-07-12 07:02] LABS: ALBUMIN 2.1 gm/dl (3.1-4.5); CREATININE 6.38 mg/dL (0.70-1.30); PHOSPHOROUS 2.5 mg/dL (2.5-4.9); POTASSIUM 4.1 mmol/L (3.5-5.1)
--- NOTE | 2019-07-12 07:20 | NUR ---
ARRIVED ON SHIFT, INTRODUCED TO PATIENT, WHITE BOARD UPDATED, NO NEEDS VOICED AT THIS TIME.
--- NOTE | 2019-07-12 07:57 | NUR ---
Shift chart check completed.
[2019-07-12 08:00] VITALS: BP 118/68; BP 134/68
--- NOTE | 2019-07-12 08:03 | NUR ---
SPOKE WITH DR. BURK SOMETIME IN THE NIGHT REGARDING PATIENT SWELLING TO SCROTOM. ORDERED TO D/C FLUIDS.
[2019-07-12 12:00] VITALS: BP 122/58
[2019-07-12 16:00] VITALS: BP 135/85
[2019-07-12 20:00] VITALS: BP 144/64
--- NOTE | 2019-07-12 21:48 | NUR ---
PT REQUESTING SOMETHING TO HELP HIM SLEEP. PRN TEMAZEPAM PO GIVEN AT THIS TIME. WILL CONTINUE TO MONITOR THE PATIENT. CALL LIGHT WITHIN REACH. BED LOWEST POSITION
--- NOTE | 2019-07-12 23:00 | NUR ---
PT STATES THAT HE IS HAVING NO TROUBLES URINATING THAT HIS URINAL WAS OVERFLOWING.
[2019-07-13] VITALS: BP 143/65
--- NOTE | 2019-07-13 02:41 | NUR ---
24 HR chart check completed.
--- NOTE | 2019-07-13 04:24 | NUR ---
Patient sleeping. Respirations relaxed and easy. Siderails up . [place] on. YULI STEPHENSON
[2019-07-13 06:48] LABS: BASO % 0.3 % (0.0-1.0); EOS # 0.1 10*3/uL (0.0-0.4); EOS % 1.9 % (1.0-4.0); HEMATOCRIT 28.3 % (42.0-52.0); HEMOGLOBIN 9.2 g/dl (14.0-18.0); LYMPH # 0.7 10*3/uL (1.3-4.4); LYMPH % 9.7 % (27.0-41.0); MEAN CELL VOLUME 85.8 fl (80.0-94.0); MEAN CORPUSCULAR HGB 27.9 pg (27.0-31.0); MEAN CORPUSCULAR HGB CONC 32.5 g/dl (33.0-37.0); MEAN PLATELET VOLUME 11.2 fl (9.6-12.3); MONO # 0.7 10*3/uL (0.1-1.0); MONO % 8.8 % (3.0-9.0); NEUT # 5.9 10*3/uL (2.3-7.9); NEUT % 78.4 % (47.0-73.0); PLATELET COUNT AUTOMATED 171 10*3/uL (130-400); RED CELL DISTRI WIDTH 14.8 % (0-14.5); WHITE BLOOD COUNT 7.5 10*3/uL (4.8-10.8)
[2019-07-13 06:59] LABS: CREATININE 6.41 mg/dL (0.70-1.30); PHOSPHOROUS 2.4 mg/dL (2.5-4.9); POTASSIUM 3.7 mmol/L (3.5-5.1)
[2019-07-13 07:00] LABS: TOTAL PROTEIN 5.7 gm/dL (6.4-8.2)
--- NOTE | 2019-07-13 07:25 | NUR ---
ARRIVED ON SHIFT, PATIENT SITTING UP IN CHAIR, WITH EYES CLOSED, WHITE BOARD UPDATED.
--- NOTE | 2019-07-13 07:44 | NUR ---
Shift chart check completed.
[2019-07-13 08:00] VITALS: BP 128/68
[2019-07-13 12:00] VITALS: BP 124/82
--- NOTE | 2019-07-13 13:00 | NUR ---
PHYSICAL THERAPY PT EVAL COMPLETED TODAY:FULL EVAL TO FOLLOW. RECOMMEND PT WHILE HERE TO ADDRESS AND ALLOW RETURN TO PLOF. PT EVAL IS MODERATE COMPLEXITY: [id number]. D/C RECOMMENDATIONS ARE HOME HEALTH ON D/C AND HOME WITH FAMILY SUPPORT. THANK YOU FOR REFERRAL IVANIA JACINTO PT
[2019-07-13 16:00] VITALS: BP 134/61
[2019-07-13 20:00] VITALS: BP 145/66
--- NOTE | 2019-07-13 21:52 | NUR ---
CALLED DR. BURK AND INFROMED HIM OF PT RESTORIL NEEDING CONTINUED FOR PRN INS. HE STATED ITS OK TO CONTINUE THE MEDICATION PRN
--- NOTE | 2019-07-13 21:56 | NUR ---
PT REQUESTING RESTORIL AT THIS TIME TO HELP HIM SLEEP. PRN RESORIL PO IS GIVEN AT THIS TIME. WILL CONTINUE TO MONITOR THE PATIENT. CALL LIGHT WITHIN REACH.
--- NOTE | 2019-07-13 22:35 | NUR ---
RE-EVALUATED PATIENT AT THIS TIME, AND PT IS SLEEPING. AROUSES EASILY. WILL CONTINUE TO MONITOR PATIENT.
[2019-07-14] VITALS: BP 151/65
--- NOTE | 2019-07-14 02:10 | NUR ---
24 HR chart check completed.
--- NOTE | 2019-07-14 04:06 | NUR ---
Patient sleeping. Respirations relaxed and easy. Siderails up . [place] on. YULI STEPHENSON
[2019-07-14 06:21] LABS: BASO % 0.4 % (0.0-1.0); EOS # 0.2 10*3/uL (0.0-0.4); EOS % 1.9 % (1.0-4.0); HEMATOCRIT 27.6 % (42.0-52.0); HEMOGLOBIN 9.1 g/dl (14.0-18.0); LYMPH # 0.9 10*3/uL (1.3-4.4); LYMPH % 10.2 % (27.0-41.0); MEAN CELL VOLUME 85.4 fl (80.0-94.0); MEAN CORPUSCULAR HGB 28.2 pg (27.0-31.0); MEAN PLATELET VOLUME 10.7 fl (9.6-12.3); MONO # 0.7 10*3/uL (0.1-1.0); MONO % 8.7 % (3.0-9.0); NEUT # 6.5 10*3/uL (2.3-7.9); NEUT % 77.5 % (47.0-73.0); PLATELET COUNT AUTOMATED 202 10*3/uL (130-400); RED BLOOD COUNT 3.23 10*6/uL (4.50-5.90); RED CELL DISTRI WIDTH 14.9 % (0-14.5); WHITE BLOOD COUNT 8.4 10*3/uL (4.8-10.8)
[2019-07-14 06:49] LABS: ALBUMIN 2.1 gm/dl (3.1-4.5); CREATININE 6.09 mg/dL (0.70-1.30); POTASSIUM 3.5 mmol/L (3.5-5.1)
[2019-07-14 06:50] LABS: TOTAL PROTEIN 5.8 gm/dL (6.4-8.2)
[2019-07-14 07:40] VITALS: BP 132/68
[2019-07-14 08:00] VITALS: BP 150/62
[2019-07-14 12:00] VITALS: BP 140/58
--- NOTE | 2019-07-14 13:06 | NUR ---
NOTIFIED DR HUNT OF NEED FOR NEW ORDER TO CONTINUE CARDIAC MONITORING PER POLICY.
--- NOTE | 2019-07-14 13:13 | NUR ---
Patient resting quietly with no c/o discomfort. Respirations easy and regular. Vital signs stable. No overt distress. AT BEDSIDE. CALL LIGHT WITHIN REACH. MAGAN MOCTEZUMA
[2019-07-14 16:00] VITALS: BP 151/71
[2019-07-14 20:00] VITALS: BP 150/61
--- NOTE | 2019-07-14 23:07 | NUR ---
PT REQUESTING TEMAZEPAM TO HELP HIM SLEEP. PO TEMAZAPAM GIVEN AT THIS TIME. WILL CONTINUE TO MONITOR THE PATIENT. CALL LIGHT WITHIN REACH, BED ALARM ON.
--- NOTE | 2019-07-14 23:35 | NUR ---
PT REASSESED AT THIS TIME AND IS SLEEPING. WILL CONTINUE TO MONITOR.
[2019-07-15] VITALS: BP 145/55
--- NOTE | 2019-07-15 01:59 | NUR ---
24 HR chart check completed.
--- NOTE | 2019-07-15 03:26 | NUR ---
Patient sleeping. Respirations relaxed and easy. Siderails up . [place] on. YULI STEPHENSON
[2019-07-15 06:28] LABS: BASO % 0.2 % (0.0-1.0); EOS # 0.2 10*3/uL (0.0-0.4); EOS % 1.9 % (1.0-4.0); HEMATOCRIT 28.1 % (42.0-52.0); HEMOGLOBIN 9.1 g/dl (14.0-18.0); LYMPH # 1.1 10*3/uL (1.3-4.4); LYMPH % 13.3 % (27.0-41.0); MEAN CORPUSCULAR HGB 28.2 pg (27.0-31.0); MEAN CORPUSCULAR HGB CONC 32.4 g/dl (33.0-37.0); MEAN PLATELET VOLUME 10.7 fl (9.6-12.3); MONO # 0.7 10*3/uL (0.1-1.0); MONO % 8.2 % (3.0-9.0); NEUT # 6.2 10*3/uL (2.3-7.9); NEUT % 75.3 % (47.0-73.0); PLATELET COUNT AUTOMATED 243 10*3/uL (130-400); RED BLOOD COUNT 3.23 10*6/uL (4.50-5.90); RED CELL DISTRI WIDTH 15.1 % (0-14.5); WHITE BLOOD COUNT 8.2 10*3/uL (4.8-10.8)
[2019-07-15 06:47] LABS: ALBUMIN 2.1 gm/dl (3.1-4.5); CREATININE 5.39 mg/dL (0.70-1.30); PHOSPHOROUS 3.6 mg/dL (2.5-4.9); POTASSIUM 3.4 mmol/L (3.5-5.1)
[2019-07-15 06:49] LABS: TOTAL PROTEIN 6.1 gm/dL (6.4-8.2)
[2019-07-15 08:00] VITALS: BP 108/74
--- NOTE | 2019-07-15 09:00 | NUR ---
case management visits with patient, present, discussed with them a discharge plan. stated patient would be returning home when medically stable, discussed with them [facility] and they both declined, case management will follow for any home needs
--- NOTE | 2019-07-15 11:12 | NUR ---
DR. COOLEY IN TO SEE PATIENT RE: PLAN OF CARE, OK TO DISCHARGE PER DR. COOLEY, WHO HAS CONTACTED DR. JACOBSON ABOUT DISCHARGE PLANS.
[2019-07-15] MEDS ORDERED: SIMVASTATIN40 MG PO (12:00)
[2019-07-15] MEDS ORDERED: LOPRESSOR25 MG PO (12:00)
[2019-07-15] MEDS ORDERED: BISOPROLOL FUMAR5 MG PO (12:01)
--- NOTE | 2019-07-15 12:35 | NUR ---
Discharge instructions reviewed with patient/family. Patient receptive and verbalizes understanding. Follow-up care arranged. Written instructions given to patient/family. ELROY WILEY
--- NOTE | 2019-07-15 13:10 | NUR ---
PATIENT DISCHARGED TO [facility] BY WHEELCHAIR, ACCOMPANIED BY TRANSPORT STAFF, FOR HOME BY PRIVATE VEHICLE WITH HIS .
--- NOTE | 2019-07-16 07:41 | NUR ---
PHYSICAL THERAPY CO-SIGN I approve of the Physical Therapy notes written above. Marci Heaton PT
== END 2019-07-15 12:35 | disposition home or self-care (01) | DRG 417 ==
LOC: ED 23:22 → EDHOLD 07-06 01:47 → 5E 07-06 01:47 → 4E 07-06 01:47 → ICCU 07-06 01:47 → 5E 07-06 02:16 → ICCU 07-09 02:43 → 4E 07-11 12:18
PROVIDERS: Emergency Medicine Emergency Medical Services; Family Medicine; Internal Medicine; Student in an Organized Health Care Education/Training Program; Surgery; ADMIT Internal Medicine
PROC: 0FT44ZZ Resection of Gallbladder, Percutaneous Endoscopic Approach (ICD-10-PCS; principal; 2019-07-08)
PROC: B548ZZA Ultrasonography of Superior Vena Cava, Guidance (ICD-10-PCS; 2019-07-09)
PROC: 02H633Z Insertion of Infusion Device into Right Atrium, Percutaneous Approach (ICD-10-PCS; 2019-07-09)
DX: K80.00 Calculus of gallbladder with acute cholecystitis without obstruction (principal); N17.0 Acute kidney failure with tubular necrosis; A41.9 Sepsis, unspecified organism; R65.21 Severe sepsis with septic shock; E46 Unspecified protein-calorie malnutrition; D64.9 Anemia, unspecified; I25.10 Atherosclerotic heart disease of native coronary artery without angina pectoris; E78.5 Hyperlipidemia, unspecified; R73.9 Hyperglycemia, unspecified; K40.90 Unilateral inguinal hernia, without obstruction or gangrene, not specified as recurrent; E87.8 Other disorders of electrolyte and fluid balance, not elsewhere classified; R74.0 Nonspecific elevation of levels of transaminase and lactic acid dehydrogenase [LDH]; N18.9 Chronic kidney disease, unspecified; I12.9 Hypertensive chronic kidney disease with stage 1 through stage 4 chronic kidney disease, or unspecified chronic kidney disease; D69.6 Thrombocytopenia, unspecified; Z79.899 Other long term (current) drug therapy; Z91.041 Radiographic dye allergy status; Z82.49 Family history of ischemic heart disease and other diseases of the circulatory system; Z83.3 Family history of diabetes mellitus; I25.2 Old myocardial infarction; Z79.82 Long term (current) use of aspirin; Z95.1 Presence of aortocoronary bypass graft; Z68.29 Body mass index [BMI] 29.0-29.9, adult

== ENCOUNTER → 2024-01-17 | Outpatient (CLI) | payer MEDICARE ==
[~2024-01-17] MED LIST changes: +B121000 MCG/1 IM; +BISOPROLOL FUMAR5 MG PO; +CLARITIN10 MG PO; +CO Q-1010 M2 PO; +MAALOX ADVANCE355 M1 PO; +SIMVASTATIN40 MG PO; +TRIAMTERENE-HC1 EACH PO
== END | disposition home or self-care (01) ==
LOC: CARD 09:07
PROVIDERS: ATTEND Physician Assistant
DX: I08.8 Other rheumatic multiple valve diseases (principal); R00.0 Tachycardia, unspecified; Z95.2 Presence of prosthetic heart valve

== ENCOUNTER → 2025-02-17 | Outpatient (CLI) | payer MEDICARE ==
[~2025-02-17] MED LIST changes: +GADOTERATE MEGLUMINE 7.5 MMOL/15 ML VIAL IV ONE; +SODIUM CHLORIDE 0.9% 50 ML IV ONE
== END | disposition home or self-care (01) ==
LOC: MRI 09:59
PROVIDERS: ATTEND Physician Assistant
DX: N28.9 Disorder of kidney and ureter, unspecified (principal)

== ENCOUNTER → 2025-02-19 | Outpatient (CLI) | payer MEDICARE | END | disposition home or self-care (01) | LOC: MRI 00:32 | PROVIDERS: ATTEND Physician Assistant | DX: N28.9 Disorder of kidney and ureter, unspecified (principal) ==